=== PATIENT | female | born 1965 | race Caucasian/White ===

== ENCOUNTER → 2019-08-29 10:55 | Outpatient (CLI) | payer OTHER, MEDICAID, SELFPAY ==
[2019-08-31 14:59] LABS: Calcitonin < 2 pg/mL (< 6)
== END ==
PROVIDERS: Family Provider Internal Medicine Critical Care Medicine; PCP Family Medicine; Visit Provider Internal Medicine Endocrinology, Diabetes & Metabolism
DX: C80.1 Malignant (primary) neoplasm, unspecified (principal); Z85.850 Personal history of malignant neoplasm of thyroid; R93.89 Abnormal findings on diagnostic imaging of other specified body structures; E89.0 Postprocedural hypothyroidism; C73 Malignant neoplasm of thyroid gland; E04.1 Nontoxic single thyroid nodule
CPT/HCPCS: 36415; 82308

== ENCOUNTER → 2019-09-20 16:08 | Outpatient (CLI) | payer OTHER, MEDICAID, SELFPAY ==
--- NOTE | 2019-09-20 16:10 | DI.MRI.S_ITS ---
PROCEDURE: MR HEAD/BRAIN WO/W CON INDICATIONS: MALIGNANT NEOPLASM OF THYROID GLAND TECHNIQUE: Noncontrast axial T1 spin echo, axial T2 fast spin echo, sagittal and axial FLAIR, coronal T2 fast spin echo, axial gradient echo, axial diffusion and ADC through the brain. After the administration of contrast, axial and coronal 3D VIBE or T1 spin echo with fat saturation through the brain. COMPARISON: [facility], [place], [place] PET CT FUSION SKULL 2 THIGH, 09/04/2019, 14:31. FINDINGS: Image quality: Excellent. CSF Spaces: Basal cisterns are patent. No extra-axial fluid collections. Ventricles are normal in size and shape. Brain: No midline shift. No intracranial bleeds or masses. No abnormal intracranial enhancement. The brainstem appears normal. Diffusion-weighted images demonstrate no acute ischemic insults. There are minimal periventricular and subcortical white matter chronic microvascular ischemic changes. Normal intravascular flow voids are present. Skull and face: Calvarial marrow is normal in signal. Orbits appear normal. Sinuses: Sinuses and mastoids appear clear. IMPRESSION: 1. No acute intracranial disease process. 2. No metastatic disease. 3. No suspicious postcontrast enhancement. 4. Minimal periventricular and subcortical white matter chronic microvascular ischemic change. Dictated by: Arlene Jamil MD, PhD on 09/23/2019 at 10:01 Approved by: Arlene Jamil MD, PhD on 09/23/2019 at 10:08
== END ==
PROVIDERS: Family Provider Internal Medicine Critical Care Medicine; PCP Family Medicine; Visit Provider Internal Medicine
DX: C73 Malignant neoplasm of thyroid gland (principal); C34.12 Malignant neoplasm of upper lobe, left bronchus or lung
CPT/HCPCS: 70553; A9579

== ENCOUNTER → 2019-10-28 12:05 | Outpatient (CLI) | payer OTHER, MEDICAID, SELFPAY ==
--- NOTE | 2019-10-28 | DI.RAD.S_ITS ---
PROCEDURE: [place] GUIDED PICC PLACEMENT INDICATIONS: Malignant (primary) neoplasm, unspecified COMPARISON: [facility], MR, MR HEAD/BRAIN WO/W CON, 09/20/2019, 16:21. [place], [place], [place] PET CT FUSION SKULL 2 THIGH, 09/04/2019, 14:31. [facility], BIOPSY LOCALIZATION/ASPIRATION, 06/17/2016, 15:19. [facility], THYROID, 06/09/2016, 12:11. [place], [place], PET/CT SKULL BASE TO MID THIGH, 05/27/2016, 12:33. [facility], [place], THORAX WITH CONTRAST, 05/12/2016, 12:59. FINDINGS: PICC was placed by the intravenous therapy team from the left side. Fluoroscopic spot film demonstrates the tip of the left upper extremity approach PICC projecting to the area of superior vena cava, just above the cavoatrial junction. There is an irregular spiculated mass of the superior left mediastinum/left upper lobe, correlating with the spiculated thoracic mass/malignancy described on comparison PET CT of 09/04/19. IMPRESSION: 1. Left upper extremity approach PICC tip projects over the superior vena cava. 2. Irregular spiculated mass of the superior left mediastinum/left upper lobe, correlating with the spiculated thoracic mass/malignancy described on comparison PET/CT of 09/04/19. Dictated by: Hood Cuevas M.D. on 10/28/2019 at 13:51 Approved by: Hood uCevas M.D. on 10/28/2019 at 13:58
== END ==
PROVIDERS: Family Provider Internal Medicine Critical Care Medicine; PCP Family Medicine; Visit Provider Internal Medicine
DX: Z45.2 Encounter for adjustment and management of vascular access device (principal); C80.1 Malignant (primary) neoplasm, unspecified; R22.2 Localized swelling, mass and lump, trunk
CPT/HCPCS: 36573

== ENCOUNTER 2021-02-26 23:41 | Observation (INO) | payer OTHER, MEDICAID, SELFPAY ==
[2021-02-26 23:45] VITALS: BMI 30.5
--- NOTE | 2021-02-26 23:51 | DI.CT.S_ITS ---
PROCEDURE: CT CHEST ABD PEL W CON INDICATIONS: severe abdominal pain, recent history of lung Cancer, PE, GI bleed TECHNIQUE: After the administration of intravenous contrast, 5 mm thick sections acquired from the lung apices to the symphysis. 5 mm coronal and sagittal reformats were performed, with additional 7 mm MIP reformats through the lungs. For radiation dose reduction, the following was used: automated exposure control, adjustment of mA and/or kV according to patient size. COMPARISON: [place], [place], [place] PET CT FUSION SKULL 2 THIGH, 12/04/2019, 15:02. FINDINGS: Image quality: Excellent. CHEST: Lungs and pleura: Consolidative change can be seen involving the left upper lung, which is progressed compared to the 12/04/2019 examination. Postoperative changes are seen of the left lung. Underlying centrilobular emphysematous changes are seen. No pleural effusions or pneumothorax. Central and peripheral airways appear patent and normal in caliber. Mediastinum: Heart size is at the upper limits of normal. At least moderate coronary artery calcification is seen. No pericardial effusion. No mediastinal or hilar adenopathy by size criteria. Descending thoracic aorta is minimally aneurysmal at 4.1 cm. The pulmonary arteries demonstrate normal size. Esophagus is normal in caliber. No hiatal hernia. Chest wall: No axillary or supraclavicular adenopathy by size criteria. Thyroid gland is not well seen. ABDOMEN: Solid organs: Liver is normal in size and enhancement. Of the right liver dome, there is a 5 mm low-density lesion. Gallbladder demonstrates apparent layering sludge, with small gallstones. Biliary system is non dilated. Pancreas enhances normally. Spleen is normal in size and enhancement. There is a left adrenal nodule seen that measures 33 Hounsfield units and 2 cm. No right adrenal nodules. Kidneys demonstrate normal size and enhancement, without hydronephrosis. Left kidney cysts are seen, which measure up to 10 Hounsfield units, which are considered to be simple cysts. Peritoneum and bowel: Bowel loops demonstrate normal wall thickness and caliber. No free fluid or air. Nodes and vessels: No retroperitoneal or mesenteric adenopathy by size criteria. Aorta and inferior vena cava are normal in size. The abdominal aorta measures at the upper limits of normal at 2.9 cm. Atherosclerotic calcification is noted. Atherosclerotic calcification can be seen of the iliac arteries, with at least 50% stenosis of the common iliac arteries. Miscellaneous: Anterior abdominal wall mesh placement can be seen. PELVIS: Genitourinary: Bladder wall thickness is normal. The uterus appears normal for age. No adnexal masses are seen. Miscellaneous: No inguinal hernias or adenopathy. Bones: No suspicious bony lesions. No vertebral body compression fractures. Mild dextroconvex scoliotic curvature is seen. Focal L5-S1 degenerative change is seen. Milder degenerative changes are seen elsewhere. IMPRESSION: Postoperative change is seen involving the left upper lung. There is also consolidative change can be seen involving the left upper lung, which is felt most likely be related to posttreatment changes. Superimposed infection is possible, yet considered to be less likely. If clinically appropriate, a scheduled follow-up PET-CT could be considered for further evaluation. Minimal ascending aortic aneurysm, 4.1 cm. Atherosclerotic calcification, including in involving the coronary arteries. There is at least 50% stenosis of the common iliac arteries. Incidental note is made of: Likely right liver dome cyst Apparent layering gallbladder sludge, with small gallstones 2 cm left adrenal nodule, previously defined as benign Simple left renal cysts. Anterior abdominal wall mesh Focal L5-S1 degenerative change Note: No significant discrepancy from the preliminary report. Dictated by: Nathanael iRos M.D. on 02/27/2021 at 7:55 Approved by: Nathanael Rios M.D. on 02/27/2021 at 8:04
--- NOTE | 2021-02-26 23:51 | ED_ITS ---
HPI - Abdominal Pain General Chief Complaint: Abdominal Pain Stated Complaint: nausea,weak stomach pain sent by [email or web address] Time Seen by Provider: 02/26/21 23:45 Source: patient Mode of arrival: Ambulatory Limitations: no limitations History of Present Illness HPI narrative: 55-year-old female former smoker with history of lung cancer, pulmonary embolism, peptic ulcer disease, on Eliquis presents with a chief complaint of many months of epigastric discomfort, nausea, vomiting and poor appetite presents tonight because her symptoms have been worse over the past few days. She states that she has had dark almost black stools for the past few days. She does get weak when she ambulates. She denies any blood in her vomit. She does have a very remote history of diverticulitis but denies any bright red stool. She has had no recent antibiotics, exposure to other persons with similar symptoms. She had been in touch with her primary care provider and was told to start a PPI which she did earlier in the week but has done little to help her symptoms. She denies using Pepto-Bismol MD complaint: abdominal pain Onset (ago): week(s) Pain Consistency: constant Location: epigastric Severity: moderate Quality: cramping and aching Radiation: none Exacerbating factors: nothing Related Data Home Medications Medication Instructions Recorded Confirmed amlodipine 5 mg tablet 5 mg PO DAILY 02/15/21 02/16/21 levothyroxine 200 mcg tablet 200 mcg PO DAILY 02/15/21 02/16/21 ondansetron HCl 8 mg tablet 8 mg PO Q12H 02/15/21 02/16/21 amiodarone 200 mg tablet 200 mg PO DAILY 02/16/21 02/16/21 apixaban 5 mg tablet 5 mg PO BID 02/16/21 02/16/21 bupropion HCl 200 mg tablet,12 hr 200 mg PO DAILY 02/16/21 02/16/21 sustained-release metoprolol succinate 50 mg 50 mg PO DAILY 02/16/21 02/16/21 tablet,extended release 24 hr Previous Rx's Medication Instructions Recorded pantoprazole 20 mg tablet,delayed 20 mg PO BID #60 tab 02/16/21 release omeprazole 20 mg capsule,delayed 20 mg PO BID #60 cap 02/19/21 release Allergies Allergy/AdvReac Type Severity Reaction Status Date / Time gabapentin Allergy Unknown Unverified 02/15/21 07:00 Review of Systems Constitutional Constitutional: Denies chills, Reports fatigue, Denies fever(s), Denies frequent falls, Denies lethargy and Reports weakness Eyes Eyes: Denies change in vision, Denies eye discharge, Denies irritation and Denies loss of vision ENT Ears, Nose, Mouth, and Throat: Denies change in voice, Denies dizziness, Denies neck pain, Denies sore throat and Denies throat swelling Cardiovascular Cardiovascular: Denies chest pain, Denies irregular heart rhythm, Denies lightheadedness, Denies palpitations, Denies dyspnea, Denies dyspnea on exertion and Denies orthopnea Respiratory Respiratory: Denies cough, Denies dyspnea, Denies dyspnea on exertion and Denies wheezing Gastrointestinal Gastrointestinal: Reports abdominal pain, Reports melena, Denies change in bowel habits, Denies diarrhea, Reports nausea and Denies vomiting Musculoskeletal Musculoskeletal: Denies neck pain and Denies numbness Integumentary/Breasts Skin/Breast: Denies pruritus, Denies erythema, Denies rash and Denies wounds Neurologic Neurologic: Denies behavioral changes, Denies confusion, Denies dizziness, Denies frequent falls, Denies loss of vision, Denies numbness and Reports weakness Psychiatric Psychiatric: Denies anxiety, Denies behavioral changes, Denies confusion, Denies depression, Denies homicidal ideation and Denies suicidal ideation Endocrine Endocrine: Reports fatigue, Denies flushing and Denies palpitations Hematologic/Lymphatic Hematologic/Lymphatic: Denies easy bruising Allergic/Immunologic Allergic/Immunologic: Denies urticaria, Denies throat swelling and Denies wheezing Patient History Surgical History History of third molar tooth extraction Social History Smoking Status: Former smoker (Quit 2019) Smoking Status: Former smoker (Quit 2019) Exam Narrative Exam Narrative: GENERAL: [55] year old patient appears stated age. Well- nourished, well-developed patient, in mild distress. HEAD: Atraumatic. Normocephalic. EYES: Pupils equal round and reactive. Extraocular motions intact. No scleral icterus. No injection or drainage. ENT: Nose without bleeding, purulent drainage. Throat without erythema, tonsillar hypertrophy or exudate. Airway patent. NECK: Trachea midline. Non tender CARDIOVASCULAR: Regular rate and rhythm without murmurs, gallops, or rubs. RESPIRATORY: Clear to auscultation. Breath sounds equal bilaterally. No wheezes, rales, or rhonchi. GASTROINTESTINAL: Abdomen soft, epigastric pain, nondistended. RECTAL: Moderately HEME +. Exam performed with patient permission and female nursing slab puller at the bedside EXTREMITIES: No edema or joint tenderness. BACK: Nontender without deformity or crepitance. No flank tenderness. NEURO: AOx3. SKIN: No rash or erythema of visible areas Initial Vital Signs Initial Vital Signs: Vital Signs Temperature 98.3 F 02/26/21 23:58 Pulse Rate 72 02/26/21 23:58 Respiratory Rate 20 02/26/21 23:58 Blood Pressure 187/83 H 02/26/21 23:58 Pulse Oximetry 97 02/26/21 23:58 Course Orders Ordered: ED Orders 02/26/21 23:51 CT chest abd pel w con Stat COVID19 - ADMIT ([employer]IAN swab/PCR) Stat Complete Blood Count AUTO DIFF Stat Comprehensive Metabolic Panel Stat Prothrombin Time INR Stat Type and Screen Stat 02/27/21 00:03 EKG-12 Lead Stat 02/27/21 01:59 Consult to General Surgery Stat Discontinued Medications Sodium Chloride (Normal Saline 0.9%) 500 mls @ 1,000 mls/hr IV BOLUS ONE Stop: 02/27/21 01:08 Last Infusion: 02/27/21 01:48 Dose: 0 mls/hr Documented by: Admin: 02/27/21 00:46 Dose: 1,000 mls/hr Documented by: VAN Pantoprazole Sodium (Pantoprazole 40 Mg Vial) 40 mg IV NOW ONE Stop: 02/26/21 23:52 Last Admin: 02/27/21 00:27 Dose: 40 mg Documented by: VAN Vital Signs Vital signs: Vital Signs - 8 hr 02/26/21 23:58 Temperature 98.3 F Pulse Rate 72 Respiratory Rate 20 Blood Pressure 187/83 H Pulse Oximetry 97 MDM - Abdominal Pain Lab Data Result diagrams: 02/27/21 00:08 02/27/21 00:08 Labs: Lab Results 02/27/21 02/27/21 02/27/21 Range/Units 00:08 00:08 00:08 WBC 7.3 (4.5-11.0) X10^3/uL RBC 4.36 (4.0-5.2) X10^6/uL Hgb 13.4 (12.0-16.0) g/dL Hct 39.1 (36-46) % MCV 89.8 (80-100) fL MCH 30.7 (26-34) PG MCHC 34.2 (30-36) % RDW 15.1 H (11.6-14.8) % Plt Count 219 (150-400) X10^3/uL Neut % (Auto) 69.1 (50-75) % Lymph % (Auto) 22.5 L (25-40) % Menard % (Auto) 6.0 (3-14) % Eos % (Auto) 1.2 L (2-4) % Baso % (Auto) 1.2 (0-2) % Neut # (Auto) 5100 (9081-5562) /uL Lymph # (Auto) 1700 (0060-9413) /uL Menard # (Auto) 400 (0-900) /uL Eos # (Auto) 100 (0-450) /uL Baso # (Auto) 100 (0-100) /uL PT 16.6 H (10.1-12.7) SECONDS INR 1.5 H (0.9-1.3) Sodium 138 (137-145) mmol/L Potassium 3.4 (3.4-5.1) mmol/L Chloride 104 (98-107) mmol/L Carbon Dioxide 26 (22-32) mmol/L BUN 20 H (7-17) mg/dL Creatinine 1.42 H (0.52-1.04) mg/dL Estimated GFR 38.1 L (>60) mL/min BUN/Creatinine Ratio 14.1 (6-22) Glucose 93 (70-100) mg/dL Calcium 10.0 (8.4-10.2) mg/dL Total Bilirubin 0.5 (0.2-1.3) mg/dL AST 19 (14-36) IU/L ALT 14 (<35) IU/L Alkaline Phosphatase 90 (38-126) U/L Total Protein 7.2 (6.3-8.2) g/dL Albumin 4.4 (3.5-5.0) g/dL Globulin 2.8 (1.7-4.1) g/dL Albumin/Globulin Ratio 1.6 (1.0-2.8) Blood Type Antibody Screen 02/27/21 Range/Units 00:35 WBC (4.5-11.0) X10^3/uL RBC (4.0-5.2) X10^6/uL Hgb (12.0-16.0) g/dL Hct (36-46) % MCV (80-100) fL MCH (26-34) PG MCHC (30-36) % RDW (11.6-14.8) % Plt Count (150-400) X10^3/uL Neut % (Auto) (50-75) % Lymph % (Auto) (25-40) % Menard % (Auto) (3-14) % Eos % (Auto) (2-4) % Baso % (Auto) (0-2) % Neut # (Auto) (9927-8418) /uL Lymph # (Auto) (0549-3738) /uL Menard # (Auto) (0-900) /uL Eos # (Auto) (0-450) /uL Baso # (Auto) (0-100) /uL PT (10.1-12.7) SECONDS INR (0.9-1.3) Sodium (137-145) mmol/L Potassium (3.4-5.1) mmol/L Chloride (98-107) mmol/L Carbon Dioxide (22-32) mmol/L BUN (7-17) mg/dL Creatinine (0.52-1.04) mg/dL Estimated GFR (>60) mL/min BUN/Creatinine Ratio (6-22) Glucose (70-100) mg/dL Calcium (8.4-10.2) mg/dL Total Bilirubin (0.2-1.3) mg/dL AST (14-36) IU/L ALT (<35) IU/L Alkaline Phosphatase (38-126) U/L Total Protein (6.3-8.2) g/dL Albumin (3.5-5.0) g/dL Globulin (1.7-4.1) g/dL Albumin/Globulin Ratio (1.0-2.8) Blood Type O Positive Antibody Screen Negative Discharge Plan Departure Prescriptions: No Action omeprazole 20 mg capsule,delayed release(DR/EC) 20 mg PO BID Qty: 60 RF: 0 bupropion HCl 200 mg tablet sustained-release 12 hr 200 mg PO DAILY RF: 0 Eliquis 5 mg tablet 5 mg PO BID RF: 0 amiodarone 200 mg tablet 200 mg PO DAILY RF: 0 metoprolol succinate 50 mg tablet extended release 24 hr 50 mg PO DAILY RF: 0 pantoprazole [Protonix] 20 mg tablet,delayed release (DR/EC) 20 mg PO BID Qty: 60 RF: 0 amlodipine 5 mg tablet 5 mg PO DAILY RF: 0 levothyroxine 200 mcg tablet 200 mcg PO DAILY RF: 0 ondansetron HCl 8 mg tablet 8 mg PO Q12H RF: 0
[2021-02-26 23:58] VITALS: BP 187/83; PULSE 72; RESP 20; TEMP 36.8; O2SAT 97
[2021-02-27 00:26] LABS: Add Manual Diff / Slide Review NO; Basophils Absolute Auto 100 /uL (0-100); Basophils Percent Auto 1.2 % (0-2); Eosinophils Absolute Auto 100 /uL (0-450); Eosinophils Percent Auto 1.2 % (2-4); Hematocrit 39.1 % (36-46); Hemoglobin 13.4 g/dL (12.0-16.0); Lymphocytes Absolute Auto 1700 /uL (1100-4500); Lymphocytes Percent Auto 22.5 % (25-40); Mean Corpuscular HGB Conc 34.2 % (30-36); Mean Corpuscular Hemoglobin 30.7 PG (26-34); Mean Corpuscular Volume 89.8 fL (80-100); Monocytes Absolute Auto 400 /uL (0-900); Neutrophils Absolute Auto 5100 /uL (1500-7000); Neutrophils Percent Auto 69.1 % (50-75); Platelet Count 219 X10^3/uL (150-400); Red Blood Cell Count 4.36 X10^6/uL (4.0-5.2); Red Cell Distribution Width 15.1 % (11.6-14.8); White Blood Cell Count 7.3 X10^3/uL (4.5-11.0)
[2021-02-27] MEDS: PANTOPRAZOLE 40 MG VIAL IV ×2 (00:27→09:30)
[2021-02-27 00:30] LABS: Alanine Aminotransferase 14 IU/L (<35); Albumin 4.4 g/dL (3.5-5.0); Albumin Globulin Ratio 1.6 (1.0-2.8); Alkaline Phosphatase 90 U/L (38-126); Aspartate Aminotransferase 19 IU/L (14-36); BUN Creatinine Ratio 14.1 (6-22); Bilirubin Total 0.5 mg/dL (0.2-1.3); Blood Urea Nitrogen 20 mg/dL (7-17); Carbon Dioxide 26 mmol/L (22-32); Chloride 104 mmol/L (98-107); Estimated Glomerular Filt Rate 38.1 mL/min (>60); Globulin 2.8 g/dL (1.7-4.1); Glucose 93 mg/dL (70-100); HEMOLYSIS < 15 (0-50); Potassium 3.4 mmol/L (3.4-5.1); Sodium 138 mmol/L (137-145); Total Protein 7.2 g/dL (6.3-8.2)
[2021-02-27 00:33] LABS: INR 1.5 (0.9-1.3); Prothrombin Time 16.6 SECONDS (10.1-12.7)
[2021-02-27] MEDS: SODIUM CHLORIDE 0.9% 500 ML 1000 ML IV (00:46)
--- NOTE | 2021-02-27 02:33 | PM.HP.1 ---
History of Present Illness History of Present Illness Date Patient Seen: 02/27/21 Time Patient Seen: 02:34 Chief complaint: nausea,weak stomach pain sent by icanbuysharyn Narrative: Patient is a 55-year-old female with a history of small-cell lung cancer and non-small cell lung cancer with 2 different chemotherapy treatments and thyroid cancer which was removed & treated. Last Cancer Treatment radiation chemotherapy completed in 2019. History of pulmonary embolism, peptic ulcer disease, on Eliquis presents with a chief complaint of many months of epigastric discomfort, nausea, vomiting and poor appetite presents tonight because her symptoms have been worse over the past few days. She states that she has had dark almost black stools for the past few days. She does get weak when she ambulates. She denies any blood in her vomit or urine. She does have a very remote history of diverticulitis but denies any bright red stool. She has had no recent antibiotics, exposure to other persons with similar symptoms. She had been in touch with her primary care provider and was told to start a PPI which she did earlier in the week but has done little to help her symptoms. She denies any other over the counter medications. Upon admit patient reports that she continues to feel very tired but that the nausea and pain has decreased from earlier in the ED, her abdominal pain is a constant, ache she is unsure what improves or worsens the pain she has from time to time had vomiting following eating, she last vomited yesterday afternoon, denies hematemesis her last BM was 2-3 days ago and she notes that she has been battling with constipation for the past 2 years, she reports dark coffee color almost black stools infrequently over the past month, she has not noted any blood in her urine but states she is incontinent of urine and wears a pad and has noticed blood on her pad infrequently. Patient denies chest pain, shortness of breath, any skin wounds or abnormal bruising bleeding, bleeding from her gums, any recent injury or trauma, or illness. Patient's blood pressure once in the room 120/83 with HR 72, RR 20 and O2 saturation 97% on room air. Patient's vitals upon admit temp 98.3?, BP 187/83, HR 72, R 20, 97% on room air. Patient's labs: Blood count within normal limits RBC 4.36, HGB 13.4, HCT 39.1, RDW 15.1, BUN 20, BUTTON FACING MACHINE OPERATOR 1.42, EGFR 38.1, PT 16.6, INR 1.5, positive Hemoccult. CT Chest: Left lower lobe lobectomy pleural-parenchymal changes bronchiolectasis and volume loss felt to be postoperative changes no priors available for comparison. mild centrilobular emphysema right upper lobe. Remaining portion of lungs are clear. Mild cardiomegaly. Moderate coronary artery calcifications. Mild aneurysm dilation of the ascending aorta of 4.[address] ABD/pelvis: Hepatic steatosis. 5 mm probable cyst dome of the liver. Physiologic distension of the gallbladder with layering sludge and gallstones. Thickening right adrenal gland probable hyperplasia. Intermediate left adrenal nodule. Infrarenal abdominal aortic aneurysm with calcified atherosclerotic disease measuring 2.9 cm. Significant stenosis of the common iliac arteries bilaterally. Suspect hyperdense cyst left kidney. ED surgery consult:Dr. Jennings Patient to be admitted for GI bleed, upper epigastric pain surgery consult tomorrow. Patient History Medical History (Updated 02/27/21 @ 02:44 by JOSIAH Brown-ERIKA) History of pulmonary embolus (PE) Hypertension, essential Hypothyroidism Surgical History (Updated 02/27/21 @ 04:38 by JOSIAH Brown-ERIKA) History of lung surgery History of third molar tooth extraction History of thyroidectomy Family & Social History Family History (Updated 02/27/21 @ 04:38 by JOSIAH Brown-ERIKA) Father Heart disease Heart attack Brother Heart attack History of coronary artery stent placement Heart disease Brother Heart disease Heart attack Safety & Behavioral: Feels Safe in Current Yes Environment Tobacco & Substance use: Smoking Status Former smoker quit 2019 Substance Use Type marijuana Meds Home Medications and Allergies Home Medications Medication Instructions Recorded Confirmed Type amlodipine 5 mg tablet 5 mg PO DAILY 02/15/21 02/16/21 History levothyroxine 200 mcg tablet 200 mcg PO DAILY 02/15/21 02/16/21 History ondansetron HCl 8 mg tablet 8 mg PO Q12H 02/15/21 02/16/21 History amiodarone 200 mg tablet 200 mg PO DAILY 02/16/21 02/16/21 History apixaban 5 mg tablet 5 mg PO BID 02/16/21 02/16/21 History bupropion HCl 200 mg tablet,12 hr 200 mg PO DAILY 02/16/21 02/16/21 History sustained-release metoprolol succinate 50 mg 50 mg PO DAILY 02/16/21 02/16/21 History tablet,extended release 24 hr pantoprazole 20 mg tablet,delayed 20 mg PO BID #60 tab 02/16/21 02/16/21 Rx release omeprazole 20 mg capsule,delayed 20 mg PO BID #60 cap 02/19/21 Rx release Allergies Allergy/AdvReac Type Severity Reaction Status Date / Time gabapentin Allergy Unknown Unverified 02/15/21 07:00 Review of Systems Review of Systems ROS: Yes All systems reviewed with the patient and are negative except as otherwise documented Gastrointestinal Gastrointestinal: Reports abdominal pain and Reports nausea Exam Vital Signs (past 8 hours): - 02/26/21 23:58 Temperature 98.3 F Pulse Rate 72 Respiratory Rate 20 Blood Pressure 187/83 H Pulse Oximetry 97 Oxygen Delivery Method Room Air Narrative Exam Narrative: General: Patient is a well-developed, well-nourished in no distress at this time. HEENT: Normocephalic, atraumatic, extraocular muscles intact, oral pharynx is clear and mucous membranes are moist. Neck is supple and symmetric, trachea is midline, no adenopathy, no thyroid enlargement, nontender, no masses palpated. Negative for JVD Chest: Normal, no nasal flaring, retractions, or tachypneic labored Lungs: Auscultation of all lung murray are clear without adventitious sounds, wheezes, rhonchi, or rales. Cardio: S1 & S2 with regular rate and rhythm without murmur, rubs, or gallops, no carotid bruit, no cardiac pulsations present. Abdomen: Soft gross diffuse tenderness with greatest intensity in the epigastric area with slight distension, patient has scar from umbilical hernia repair and umbilical hernia is palpable, negative for organomegaly, or masses. Bowel sounds hypoactive are present in all 4 quadrants without guarding or rebound, no CVA tenderness. Musculoskeletal: Muscle strength and tone are equal within normal limits, no deformity, crepitus, effusions, cyanosis, clubbing or edema present. Full range of motion intact radial and pedal pulses are normal. Skin: Warm dry and intact without rashes, ulcerations or petechiae. Neuro: Alert and orientated x3, strength is +5/5 in all extremities, sensation to touch intact, no gross deficits noted of cranial nerves. Psych: Patient has a well-kept appearance, appropriate affect, mental status attitude thought context and judgment are appropriate for age. Objective Labs Result Diagrams: 02/27/21 00:08 02/27/21 00:08 Labs: Laboratory Results - last 24 hr 02/27/21 02/27/21 02/27/21 00:08 00:08 00:08 WBC 7.3 RBC 4.36 Hgb 13.4 Hct 39.1 MCV 89.8 MCH 30.7 MCHC 34.2 RDW 15.1 H Plt Count 219 Neut % (Auto) 69.1 Lymph % (Auto) 22.5 L [place] % (Auto) 6.0 Eos % (Auto) 1.2 L Baso % (Auto) 1.2 Neut # (Auto) 5100 Lymph # (Auto) 1700 [place] # (Auto) 400 Eos # (Auto) 100 Baso # (Auto) 100 PT 16.6 H INR 1.5 H Sodium 138 Potassium 3.4 Chloride 104 Carbon Dioxide 26 BUN 20 H Creatinine 1.42 H Estimated GFR 38.1 L BUN/Creatinine Ratio 14.1 Glucose 93 Calcium 10.0 Total Bilirubin 0.5 AST 19 ALT 14 Alkaline Phosphatase 90 Total Protein 7.2 Albumin 4.4 Globulin 2.8 Albumin/Globulin Ratio 1.6 Blood Type Antibody Screen 02/27/21 00:35 WBC RBC Hgb Hct MCV MCH MCHC RDW Plt Count Neut % (Auto) Lymph % (Auto) [place] % (Auto) Eos % (Auto) Baso % (Auto) Neut # (Auto) Lymph # (Auto) [place] # (Auto) Eos # (Auto) Baso # (Auto) PT INR Sodium Potassium Chloride Carbon Dioxide BUN Creatinine Estimated GFR BUN/Creatinine Ratio Glucose Calcium Total Bilirubin AST ALT Alkaline Phosphatase Total Protein Albumin Globulin Albumin/Globulin Ratio Blood Type O Positive Antibody Screen Negative Assessment & Plan Assessment & Plan narrative: This patient requires acute care inpatient hospital management for acute GI bleed with upper abdominal epigastric pain, after failing outpatient management from her PCP. The patient is at much higher risk for medical and surgical complications because of her history of small-cell lung cancer and non-small cell lung cancer with 2 different chemotherapy treatments and thyroid cancer. Last Cancer Treatment radiation chemotherapy completed in 2019. History of pulmonary embolism, peptic ulcer disease, on chronic anticoagulant therapy. These factors increase the difficulty and complexity of medical and surgical interventions and increases the chances of poor outcomes such as morbidity and mortality. The patient's tobacco abuse and cancer history are likely to impact her oxygenation, which can contribute poor health outcomes. 1. Acute GI bleed with upper abdominal epigastric pain, acute, present on admission, patient stable,not actively bleeding Suspect lower GI bleed -diagnostic criteria:-reported history of melena, melenic stool on examination. Positive Hemoccult in ED -Rule out upper GI &/or Lower GI Bleeding, duodenitis, esophageal varices, portal hypertensive gastropathy, angiodysplasia, gastric reflux, gastritis, peptic ulcer disease, aerophagia, Dorinda-Johnson tear, and or gastric cancer. -closely monitor airway, clinical status, vital signs, cardiac rhythm, urinary output. - melena (black, tarry stool) originates proximal to the ligament of Treitz (90 percent), though it may also originate from the oropharynx or nasopharynx, small bowel, or colon. Patient's vitals upon admit temp 98.3?, BP 187/83, HR 72, R 20, 97% on room air. Patient's labs: Blood count within normal limits RBC 4.36, HGB 13.4, HCT 39.1, RDW 15.1, BUN 20, BUTTON FACING MACHINE OPERATOR 1.42, EGFR 38.1, PT 16.6, INR 1.5, positive Hemoccult. CT Chest: Left lower lobe lobectomy pleural-parenchymal changes bronchiolectasis and volume loss felt to be postoperative changes no priors available for comparison. mild centrilobular emphysema right upper lobe. Remaining portion of lungs are clear. Mild cardiomegaly. Moderate coronary artery calcifications. Mild aneurysm dilation of the ascending aorta of 4.[address] ABD/pelvis: Hepatic steatosis. 5 mm probable cyst dome of the liver. Physiologic distension of the gallbladder with layering sludge and gallstones. Thickening right adrenal gland probable hyperplasia. Intermediate left adrenal nodule. Infrarenal abdominal aortic aneurysm with calcified atherosclerotic disease measuring 2.9 cm. Significant stenosis of the common iliac arteries bilaterally. Suspect hyperdense cyst left kidney. ED surgery consult:Dr. Jennings Patient to be admitted for GI bleed, upper epigastric pain surgery consult tomorrow. -hold patient's Eliquis Upon admit: PTT 16.6/INR 1.5 -vital signs if unstable q.1 hours x2, then q.4 hours if stable, call for heart rate> 100, systolic BP< 100, activity-as tolerated with fall precautions, strict I&O Q shift, No VTE/DVT prophylaxis due to bleeding risk. -NPO -comorbidities that complicate or exacerbate anemia condition include coronary artery disease, older patient age, and COPD. -patient was typed and cross in ER -LR at 100 cc/hour -Reglan 10 mg -Protonix 40 mg IV Qdaily-when no active bleeding is present -labs ordered CBC, peripheral smear, reticulocyte count, PT, PTT, iron profile, CMP, lactate -consults ordered: Surgery Dr. Jennings -prevention vaccines: Seasonal flu recommended 2.Essential hypertension, acute on chronic present on admission, uncontrolled -187/83 at admit -continue patient's amiodarone, amlodipine, metoprolol 3. Hypothyroidism, chronic, secondary to cancer of the thyroid/thyroidectomy, not present on admission, control unknown -continue patient's levothyroxine, TSH ordered 4. History of small cell carcinoma of the lung, episodes x2, last treated 2019, resulting in history of PE, and subsequent long-term chronic anticoagulation therapy, not present on admission -holding patient'sharyn Ojeda at this time. Code status: Full code Surrogate decision maker: Brother John VILLARREAL PCR: Negative VTE/DVT prophylaxis: Contraindicated, SCDs only Scores GCS [place] coma scale eye opening: Spontaneous Maxime coma scale verbal response: Orientated Maxime coma scale motor response: Obey commands Maxime coma scale total score: 15 SOFA PaO2/FIO2: >=400 mmHg Platelets: >= 150 Bilirubin: < 1.2 mg/dL Hypotension: MAP >= 70 mmHg Maxime Coma Scale: 15 Renal: Creatinine 1.2-1.9 mg/dL SOFA Score: 1 Wells' Criteria for PE Clinical signs and symptoms of DVT: No PE is #1 Dx or equally likely: No Heart rate > 100: No Immobilization at least 3 days or surg in previous 4 weeks: No History of PE or DVT: Yes Hemoptysis: No Malignancy w/Treatment within 6 months or palliative: No Wells' PE Score total: 1.5
[2021-02-27 03:24] LABS: Reticulocyte Count, Percent 1.4 % (1.06-2.63)
[2021-02-27 03:31] LABS: COVID19 - ADMIT (NP swab/PCR) Negative (Negative)
[2021-02-27 03:45] VITALS: BP 120/83; PULSE 70; RESP 18; TEMP 36.3; O2SAT 99
[2021-02-27] MEDS: LACTATED RINGERS 1,000 ML 100 ML IV (04:08)
[2021-02-27] MEDS: METOCLOPRAMIDE 10 MG in SODIUM CHLORIDE 0.9% 50 ML 208 ML IV (05:35)
--- NOTE | 2021-02-27 06:11 | PC.NURSE ---
Patient states she has no allergy to gabapentin. Admit belongings include 2 silver metal colored rings, and 1 silver colored metal bracelet. shoes, socks,underwear, bra, sweatshirt,hat,pants,shoes,home meds of 3 pills she did not take last night, labeled and given to coordinator. Patient also has wallet,keys,purse,cell phone and door machine operator. I labelled the door machine operator with patient's permission..
[2021-02-27 06:44] LABS: Add Manual Diff / Slide Review NO; Basophils Absolute Auto 0 /uL (0-100); Basophils Percent Auto 0.7 % (0-2); Eosinophils Absolute Auto 100 /uL (0-450); Eosinophils Percent Auto 1.2 % (2-4); Hematocrit 38.6 % (36-46); Hemoglobin 12.7 g/dL (12.0-16.0); Lymphocytes Absolute Auto 1300 /uL (1100-4500); Lymphocytes Percent Auto 19.1 % (25-40); Mean Corpuscular Volume 91.1 fL (80-100); Monocytes Absolute Auto 400 /uL (0-900); Monocytes Percent Auto 6.5 % (3-14); Neutrophils Absolute Auto 5000 /uL (1500-7000); Neutrophils Percent Auto 72.5 % (50-75); Platelet Count 209 X10^3/uL (150-400); Red Blood Cell Count 4.24 X10^6/uL (4.0-5.2); Red Cell Distribution Width 15.4 % (11.6-14.8); White Blood Cell Count 6.9 X10^3/uL (4.5-11.0)
[2021-02-27 06:47] LABS: INR 1.3 (0.9-1.3); Prothrombin Time 14.3 SECONDS (10.1-12.7)
[2021-02-27 06:50] LABS: PTT Partial Thromboplastin Tim 38 SECONDS (26.4-36.2)
[2021-02-27 06:53] LABS: HEMOLYSIS < 15 (0-50); Iron 56 ug/dL (37-170); Lactate (Lactic Acid) 0.9 mmol/L (0.7-2.1)
[2021-02-27 06:55] LABS: Alanine Aminotransferase 12 IU/L (<35); Albumin 3.8 g/dL (3.5-5.0); Albumin Globulin Ratio 1.5 (1.0-2.8); Alkaline Phosphatase 79 U/L (38-126); Aspartate Aminotransferase 18 IU/L (14-36); BUN Creatinine Ratio 13.7 (6-22); Bilirubin Total 0.4 mg/dL (0.2-1.3); Blood Urea Nitrogen 17 mg/dL (7-17); Calcium 9.5 mg/dL (8.4-10.2); Carbon Dioxide 27 mmol/L (22-32); Chloride 107 mmol/L (98-107); Estimated Glomerular Filt Rate 44.6 mL/min (>60); Globulin 2.6 g/dL (1.7-4.1); Glucose 89 mg/dL (70-100); HEMOLYSIS < 15 (0-50); Magnesium 2.3 mg/dL (1.6-2.3); Potassium 3.3 mmol/L (3.4-5.1); Sodium 141 mmol/L (137-145); Total Protein 6.4 g/dL (6.3-8.2)
[2021-02-27 07:04] LABS: Percent Iron Saturation 22 % (15-50); Total Iron Binding Capacity 253 ug/dL (265-497); Transferrin 212 mg/dL (206-381)
[2021-02-27 07:25] LABS: TSH w/ Reflex to FT4 0.02 uIU/mL (0.47-4.68)
[2021-02-27 07:52] LABS: Free T4, Direct Thyroxine 3.06 ng/dL (0.78-2.19)
[2021-02-27 08:00] VITALS: BP 125/64; PULSE 70; RESP 18; TEMP 36.3; O2SAT 100
[2021-02-27 09:50] VITALS: BP 110/73; BP 126/86; BP 129/69; PULSE 65; PULSE 66; PULSE 77
--- NOTE | 2021-02-27 12:33 | PC.NURSE ---
Pt A&O x3 denies pain, denies nausea this a.m. No emesis. VSS, afebrile. Orthostatic SBP with standing to 110's, Pt asymptomatic.Pt ambulating with steady gait. MD at bedside this a.m. clearing patient for discharge. Pt verbalizes understanding of all medications, instructions, and follow- up appointments. Patient escorted to private vehicle with all of her medication, prescriptions and belongings to drive herself to the ferr back [facility].
--- NOTE | 2021-02-27 12:58 | CM.DANOTE ---
Patient is a 55 yo female who was admitted on 02/27/21 today for Nausea, weakness. Pt has [facility] and [facility] for insurance and her PCP is Veto Lin. EMR was reviewed. Per , pt with hx of small cell lung CA last year with last chemo dose in 2019 last year and hx of PE's and ulcers and admitted with G.I. bleed. Surgeon Consult ordered but then cancelled base on labs and presentation after admission, no further need for Surgeon consult at this time. Per MD, pt's labs have stabilized and pt's thyroid levels needed to be adjusted and pt stable for d/c home today with outpt follow up. SW met bedside with pt and explained role and she confirms she lives on [place] in a [facility] trailer/ as she says housing is so [place] on [place]. Pt is independent at baseline and her cancer is in remission but she is aware that she is high risk for her cancer to return. Pt denies any hx of SNF and currently has not completed DPOA pwk or Living Will but has been realizing that she needs to complete this. SW provided her with the DPOA brochure and pwk to review and pt very appreciative. Pt denies DME for ambulation and still drives, as her vehicle is in the parking lot and pt plans to transport herself home today. Pt states she has two adult Dtrs who live in [facility] and she goes to visit them regularly in [place]. Pt states she also has a couple other adult children but they live out of state. Pt states her biggest support is her Mother alex Glover who lives on [place] and can assist if needed (pt no longer , unsure if pt is or ). Pt's brother is also involved and supportive but he lives in [place]. Pt does not anticipate any d/c planning needs and preference is home today via her own car. Plan: Patient to d/c back home to [place] today via her own POV and outpt follow up. No SW needs at this time. EMMA Lan Discharge Planning/Care Management CM Discharge Assessment Start: 02/27/21 12:48 Freq: Status: Active Protocol: Document 02/27/21 12:48 BF (Rec: 02/27/21 12:57 BF [id number]) Discharge Planning Assessment Assigned Pharmacist Hospital EMMA Kamara DPOA/Assigned Designee Name none, gave DPOA pwk Advance Directives? No Advance Directives on File No History Provided By Patient,Medical Record Has Patient been admitted in last 30 No days? Prior Living Arrangements RV Household Members none Type of transporation used prior to Drives own vehicle admit Comment Has own vehicle in the parking lot Independent with ADL's Yes Is patient alert and oriented? Yes Caregiver for Another No Barriers to Discharge No Discharge Plan Home Transportation Arrangement has own vehicle in the parking lot Review Status In Process Please Provide Date Initial DC 02/27/21 Assessment Was Performed Next Review Type Continued Stay Review
--- NOTE | 2021-02-27 15:59 | PM.DS.1 ---
History of Present Illness History of Present Illness Date Patient Seen: 02/27/21 Time Patient Seen: 08:00 Chief complaint: nausea,weak stomach pain sent by [employer] Narrative: Ryan Beltran and P from Mary Chew: Patient is a 55-year-old female with a history of small-cell lung cancer and non-small cell lung cancer with 2 different chemotherapy treatments and thyroid cancer which was removed & treated. Last Cancer Treatment radiation chemotherapy completed in 2019. History of pulmonary embolism, peptic ulcer disease, on Eliquis presents with a chief complaint of many months of epigastric discomfort, nausea, vomiting and poor appetite presents tonight because her symptoms have been worse over the past few days. She states that she has had dark almost black stools for the past few days. She does get weak when she ambulates. She denies any blood in her vomit or urine. She does have a very remote history of diverticulitis but denies any bright red stool. She has had no recent antibiotics, exposure to other persons with similar symptoms. She had been in touch with her primary care provider and was told to start a PPI which she did earlier in the week but has done little to help her symptoms. She denies any other over the counter medications. Upon admit patient reports that she continues to feel very tired but that the nausea and pain has decreased from earlier in the ED, her abdominal pain is a constant, ache she is unsure what improves or worsens the pain she has from time to time had vomiting following eating, she last vomited yesterday afternoon, denies hematemesis her last BM was 2-3 days ago and she notes that she has been battling with constipation for the past 2 years, she reports dark coffee color almost black stools infrequently over the past month, she has not noted any blood in her urine but states she is incontinent of urine and wears a pad and has noticed blood on her pad infrequently. Patient denies chest pain, shortness of breath, any skin wounds or abnormal bruising bleeding, bleeding from her gums, any recent injury or trauma, or illness. Patient's blood pressure once in the room 120/83 with HR 72, RR 20 and O2 saturation 97% on room air. Patient's vitals upon admit temp 98.3?, BP 187/83, HR 72, R 20, 97% on room air. Patient's labs: Blood count within normal limits RBC 4.36, HGB 13.4, HCT 39.1, RDW 15.1, BUN 20, EX ASSISTANT/PROGRAM DIRECTOR 1.42, EGFR 38.1, PT 16.6, INR 1.5, positive Hemoccult. CT Chest: Left lower lobe lobectomy pleural-parenchymal changes bronchiolectasis and volume loss felt to be postoperative changes no priors available for comparison. mild centrilobular emphysema right upper lobe. Remaining portion of lungs are clear. Mild cardiomegaly. Moderate coronary artery calcifications. Mild aneurysm dilation of the ascending aorta of 4.[address] ABD/pelvis: Hepatic steatosis. 5 mm probable cyst dome of the liver. Physiologic distension of the gallbladder with layering sludge and gallstones. Thickening right adrenal gland probable hyperplasia. Intermediate left adrenal nodule. Infrarenal abdominal aortic aneurysm with calcified atherosclerotic disease measuring 2.9 cm. Significant stenosis of the common iliac arteries bilaterally. Suspect hyperdense cyst left kidney. ED surgery consult:Dr. Jennings Patient to be admitted for GI bleed, upper epigastric pain surgery consult tomorrow. Discharge Providers Provider Date of admission: 02/27/21 02:31 Discharge Date: 02/27/21 Primary care physician: Veto Lin MD Consults: 02/27/21 01:59 Consult to General Surgery Stat Comment: Consulting Provider: Vinny Jennings Reason for consultation: UPper GI Bleed on eliquis Has provider been notified: Yes Discharge provider: Rodrigo Meraz MD Summary Hospital Course Discharge Diagnosis: 1. Chronic nausea, abdominal discomfort 2. Hypothroidism, over medicated now with synthroid 3. Guaiac positive stools 4. HTN 5. History of small cell lung cancer 6. Pulmonary embolism 7. Peptic ulcer disease Hospital Course: Ms. Santana came in to the hospital with chronic epigastric discomfort, nausea, and some vomiting. Over the last year she has unfortunately not seen her PCP. Here her TSH was found to be 0.02, with elevated T3, consistent with a too high dose of synthroid. Initially there was concern for possible GI bleed. However, I did discuss this with the patient and she is quite clear she never saw blood, never had black stools, but her stools were always brown. She did have guaiac positive stools which is not surprising as she is on eliquis. Her hemoglobin was completely normal here. She did not need a endoscopy or colonoscopy. It was suspected that her chronic issues of nausea may be related to her synthroid dose. She was recommended to hold synthroid for a few days and the was prescribed a lower dose of synthroid at 125mcg per day. She is to continue her PPI. She will need follow up with her PCP to determine if change in synthroid dose is appropriate. The rest of her medical issues were stable in the hospital. Code: Full code Status at Discharge Cognitive/behavioral status at discharge: oriented Functional status at discharge: independent ambulation Overall status at discharge: patient is progressing back to baseline Time Spent with Patient Time spent: Less than 30 minutes Exam Vital Signs (past 8 hours): - 02/27/21 08:00 02/27/21 09:50 Temperature 97.4 F L Pulse Rate 70 Pulse Rate [Orthostatic Lying] 66 Pulse Rate [Orthostatic Sitting] 65 Pulse Rate [Orthostatic Standing] 77 Respiratory Rate 18 Blood Pressure 125/64 Blood Pressure [Orthostatic Lying] 129/69 Blood Pressure [Orthostatic Sitting] 126/86 Blood Pressure [Orthostatic Standing] 110/73 Pulse Oximetry 100 Oxygen Delivery Method Room Air Narrative Exam Narrative: General: no distress at this time. HEENT: mucous membranes are moist, negative for JVD Lungs: clear bilaterally with no wheezes, rhonchi, or rales. Cardio: regular rate and rhythm without murmur, rubs, or gallops Abdomen: Soft, no abdominal tenderness, negative for organomegaly. Bowel sounds are normal Musculoskeletal: Muscle strength is equal within normal limits. Skin: flushed face Neuro: Alert and orientated x3, moving all extremities Psych: cooperative, pleasant mood, slightly pressured speech. Objective Labs Result Diagrams: 02/27/21 06:00 02/27/21 06:00 Labs: Laboratory Results - last 24 hr 02/27/21 02/27/21 02/27/21 00:08 00:08 00:08 WBC 7.3 RBC 4.36 Hgb 13.4 Hct 39.1 MCV 89.8 MCH 30.7 MCHC 34.2 RDW 15.1 H Plt Count 219 Neut % (Auto) 69.1 Lymph % (Auto) 22.5 L [place] % (Auto) 6.0 Eos % (Auto) 1.2 L Baso % (Auto) 1.2 Neut # (Auto) 5100 Lymph # (Auto) 1700 [place] # (Auto) 400 Eos # (Auto) 100 Baso # (Auto) 100 Percent Retic PT 16.6 H INR 1.5 H APTT Sodium 138 Potassium 3.4 Chloride 104 Carbon Dioxide 26 BUN 20 H Creatinine 1.42 H Estimated GFR 38.1 L BUN/Creatinine Ratio 14.1 Glucose 93 Lactate Calcium 10.0 Magnesium Iron TIBC % Saturation Transferrin Total Bilirubin 0.5 AST 19 ALT 14 Alkaline Phosphatase 90 Total Protein 7.2 Albumin 4.4 Globulin 2.8 Albumin/Globulin Ratio 1.6 TSH Free T4 SARS-CoV-2 (PCR) Blood Type Antibody Screen 02/27/21 02/27/21 02/27/21 00:08 00:35 01:55 WBC RBC Hgb Hct MCV MCH MCHC RDW Plt Count Neut % (Auto) Lymph % (Auto) [place] % (Auto) Eos % (Auto) Baso % (Auto) Neut # (Auto) Lymph # (Auto) [place] # (Auto) Eos # (Auto) Baso # (Auto) Percent Retic 1.4 PT INR APTT Sodium Potassium Chloride Carbon Dioxide BUN Creatinine Estimated GFR BUN/Creatinine Ratio Glucose Lactate Calcium Magnesium Iron TIBC % Saturation Transferrin Total Bilirubin AST ALT Alkaline Phosphatase Total Protein Albumin Globulin Albumin/Globulin Ratio TSH Free T4 SARS-CoV-2 (PCR) Negative Blood Type O Positive Antibody Screen Negative 02/27/21 02/27/21 02/27/21 06:00 06:00 06:00 WBC 6.9 RBC 4.24 Hgb 12.7 Hct 38.6 MCV 91.1 MCH 30.0 MCHC 33.0 RDW 15.4 H Plt Count 209 Neut % (Auto) 72.5 Lymph % (Auto) 19.1 L [place] % (Auto) 6.5 Eos % (Auto) 1.2 L Baso % (Auto) 0.7 Neut # (Auto) 5000 Lymph # (Auto) 1300 [place] # (Auto) 400 Eos # (Auto) 100 Baso # (Auto) 0 Percent Retic PT 14.3 H INR 1.3 APTT 38 H Sodium 141 Potassium 3.3 L Chloride 107 Carbon Dioxide 27 BUN 17 Creatinine 1.24 H Estimated GFR 44.6 L BUN/Creatinine Ratio 13.7 Glucose 89 Lactate Calcium 9.5 Magnesium 2.3 Iron TIBC % Saturation Transferrin Total Bilirubin 0.4 AST 18 ALT 12 Alkaline Phosphatase 79 Total Protein 6.4 Albumin 3.8 Globulin 2.6 Albumin/Globulin Ratio 1.5 TSH Free T4 SARS-CoV-2 (PCR) Blood Type Antibody Screen 02/27/21 02/27/21 02/27/21 06:00 06:00 06:00 WBC RBC Hgb Hct MCV MCH MCHC RDW Plt Count Neut % (Auto) Lymph % (Auto) [place] % (Auto) Eos % (Auto) Baso % (Auto) Neut # (Auto) Lymph # (Auto) Lab[place] # (Auto) Eos # (Auto) Baso # (Auto) Percent Retic PT INR APTT Sodium Potassium Chloride Carbon Dioxide BUN Creatinine Estimated GFR BUN/Creatinine Ratio Glucose Lactate 0.9 Calcium Magnesium Iron 56 TIBC 253 L % Saturation 22 Transferrin 212 Total Bilirubin AST ALT Alkaline Phosphatase Total Protein Albumin Globulin Albumin/Globulin Ratio TSH 0.02 L Free T4 3.06 H SARS-CoV-2 (PCR) Blood Type Antibody Screen [facility] Medical History (Updated 02/27/21 @ 02:44 by FRANC rBown) History of pulmonary embolus (PE) Hypertension, essential Hypothyroidism Surgical History (Updated 02/27/21 @ 04:38 by FRANC Brown) History of lung surgery History of third molar tooth extraction History of thyroidectomy Family History (Updated 02/27/21 @ 04:38 by FRANC Brown) Father Heart disease Heart attack Brother Heart attack History of coronary artery stent placement Heart disease Brother Heart disease Heart attack Social History household members: none Smoking Status: Former smoker alcohol intake: never Discharge Plan Discharge Plan Patient Disposition: Home Provider Discharge Comment: Ms. Santana came to the hospital with nausea and abdominal discomfort. She had no evidence of any bleeding. She has been having symptoms on and off for awhile. She was noted to have thyroid levels that were high, likely because her synthroid has become too strong of a dose. She was recommended to stop synthroid for a 5 days. She can restart on February,. At that time she should start on a new dose of 125mcg daily instead of 200mcg. She was given zofran for nausea. She should follow closely with a primary care doctor to make sure her symptoms get better and her thyroid levels improve. She was noted to have a slight widening in her throacic aorta to 4.1cm that should be monitored for changes. Discharge orders & Medications Prescriptions: New ondansetron HCl [Zofran] 4 mg tablet 4 mg PO Q8H PRN (Reason: nausea and vomiting) Qty: 20 RF: 0 levothyroxine [Synthroid] 125 mcg tablet 125 mcg PO DAILY Qty: 30 RF: 0 Continued omeprazole 20 mg capsule,delayed release(DR/EC) 20 mg PO BID Qty: 60 RF: 0 bupropion HCl 200 mg tablet sustained-release 12 hr 200 mg PO BID RF: 0 Eliquis 5 mg tablet 5 mg PO BID RF: 0 amiodarone 200 mg tablet 200 mg PO DAILY RF: 0 metoprolol succinate 50 mg tablet extended release 24 hr 50 mg PO DAILY RF: 0 amlodipine 5 mg tablet 5 mg PO DAILY RF: 0 Discontinued pantoprazole [Protonix] 20 mg tablet,delayed release (DR/EC) 20 mg PO BID Qty: 60 RF: 0 levothyroxine 200 mcg tablet 200 mcg PO DAILY RF: 0 ondansetron HCl 8 mg tablet 8 mg PO Q12H RF: 0 Follow up/Referrals: Veto Lin MD [Primary Care Provider] - Diet/Activity/Treatments Diet: Diet as Tolerated Visit Report/Discharge Packet Instructions: DI for Hyperthyroidism Discharge Data Primary Care Provider: Veto Lin Attending Provider: Mary Chew VTE Deep Vein Thrombosis/Pulmonary Embolism Present on Admission: Yes
== END 2021-02-27 11:40 | disposition home or self-care (01) ==
LOC: ED 02-27 00:38 → AC 02-27 02:31
PROVIDERS: Admitting Provider Nurse Practitioner Family; Emergency Provider Emergency Medicine; Family Provider Internal Medicine Critical Care Medicine; PCP Family Medicine; Referring Provider Emergency Medicine; Visit Provider Nurse Practitioner Family
DX: R10.13 Epigastric pain (principal); R11.2 Nausea with vomiting, unspecified; R19.5 Other fecal abnormalities; E03.9 Hypothyroidism, unspecified; I10 Essential (primary) hypertension; Z86.711 Personal history of pulmonary embolism; Z85.118 Personal history of other malignant neoplasm of bronchus and lung; Z87.891 Personal history of nicotine dependence; Z79.01 Long term (current) use of anticoagulants; Z20.822 Contact with and (suspected) exposure to COVID-19
CPT/HCPCS: 36415; 71260; 74177; 80053; 82962; 83540; 83550; 83605; 83735; 84439; 84443; 85025; 85045; 85610; 85730; 86850; 86900; 86901; 87635; 93005; 93010; 96361; 96374; 96375; 96376; 99284; C9803; G0378; C9113; J2765; Q9967

== ENCOUNTER → 2021-04-28 12:04 | Outpatient (CLI) | payer OTHER, MEDICAID, SELFPAY ==
[2021-04-28 19:11] LABS: Add Manual Diff / Slide Review NO; Basophils Absolute Auto 100 /uL (0-100); Basophils Percent Auto 1.3 % (0-2); Eosinophils Absolute Auto 100 /uL (0-450); Eosinophils Percent Auto 1.5 % (2-4); Hematocrit 40.3 % (36-46); Hemoglobin 13.4 g/dL (12.0-16.0); Lymphocytes Absolute Auto 1400 /uL (1100-4500); Lymphocytes Percent Auto 19.3 % (25-40); Mean Corpuscular HGB Conc 33.4 % (30-36); Mean Corpuscular Hemoglobin 30.8 PG (26-34); Mean Corpuscular Volume 92.3 fL (80-100); Monocytes Absolute Auto 400 /uL (0-900); Monocytes Percent Auto 5.9 % (3-14); Neutrophils Absolute Auto 5200 /uL (1500-7000); Platelet Count 230 X10^3/uL (150-400); Red Blood Cell Count 4.36 X10^6/uL (4.0-5.2); Red Cell Distribution Width 14.9 % (11.6-14.8); White Blood Cell Count 7.2 X10^3/uL (4.5-11.0)
[2021-04-28 19:21] LABS: Alanine Aminotransferase 14 IU/L (<35); Albumin Globulin Ratio 1.6 (1.0-2.8); Alkaline Phosphatase 82 U/L (38-126); Aspartate Aminotransferase 22 IU/L (14-36); BUN Creatinine Ratio 14.1 (6-22); Bilirubin Total 0.4 mg/dL (0.2-1.3); Blood Urea Nitrogen 20 mg/dL (7-17); Calcium 9.6 mg/dL (8.4-10.2); Carbon Dioxide 30 mmol/L (22-32); Chloride 103 mmol/L (98-107); Estimated Glomerular Filt Rate 38.1 mL/min (>60); Globulin 2.5 g/dL (1.7-4.1); Glucose 102 mg/dL (70-100); HEMOLYSIS < 15 (0-50); Potassium 4.2 mmol/L (3.4-5.1); Sodium 141 mmol/L (137-145); Total Protein 6.5 g/dL (6.3-8.2)
[2021-04-28 19:52] LABS: TSH w/ Reflex to FT4 2.35 uIU/mL (0.47-4.68)
== END ==
PROVIDERS: Family Provider Internal Medicine Critical Care Medicine; PCP Family Medicine; Visit Provider Family Medicine
DX: D62 Acute posthemorrhagic anemia (principal); K27.9 Peptic ulcer, site unspecified, unspecified as acute or chronic, without hemorrhage or perforation; E03.9 Hypothyroidism, unspecified
CPT/HCPCS: 80053; 84443; 85025

== ENCOUNTER → 2021-05-25 15:42 | Outpatient (CLI) | payer OTHER, MEDICAID, SELFPAY ==
[2021-05-26 20:05] LABS: Appearance Urine UA SL CLOUDY; Bilirubin Urine UA NEGATIVE (NEGATIVE); Color Urine UA YELLOW; Glucose Urine UA NEGATIVE (Negative); Ketones Urine UA TRACE (NEGATIVE); Leukocyte Esterase Urine UA 2+ (NEGATIVE); Nitrite Urine UA NEGATIVE (Negative); Occult Blood Urine UA TRACE-LYSED (Negative); Protein Urine UA 1+ (Negative); Specific Gravity Urine UA >=1.030 (1.000-1.035); Urobilinogen Urine UA 0.2 E.U./dL (0.2)
[2021-05-26 20:07] LABS: pH Urine UA 5.5 (4.5-8.0)
[2021-05-26 20:12] LABS: Bacteria Urine Moderate (10-30); Calcium Oxalate Crystals Urine Many; Mucus Urine 1+ (Negative); RBC Urine 0-1/HPF (0-5/HPF); Squamous Epithelial Cell Urine 1-5 /HPF (0-5/HPF); Transitional Epi Cells Urine 1-5/HPF (0-5/HPF); WBC Urine 30-100/HPF (0-5/HPF)
== END ==
PROVIDERS: Family Provider Internal Medicine Critical Care Medicine; PCP Family Medicine; Visit Provider Family Medicine
DX: R82.90 Unspecified abnormal findings in urine (principal)
CPT/HCPCS: 81001; 81002; 87086

== ENCOUNTER 2021-07-07 13:59 | Emergency (ER) | payer OTHER, MEDICAID, SELFPAY ==
[2021-07-07] VITALS (12 sets, daily range): BP systolic 103–144; BP diastolic 65–88; PULSE 71–95; RESP 10–24; TEMP 36.1; O2SAT 92–100
--- NOTE | 2021-07-07 15:05 | ED.SOB ---
HPI - SOB/Dyspnea General Chief Complaint: Shortness of Breath/Dyspnea Stated Complaint: abnormal bleeding/hx of cancer/syncopy/vomitting Time Seen by Provider: 07/07/21 15:05 Source: patient Mode of arrival: Wheelchair Limitations: no limitations History of Present Illness HPI Narrative: This is a 55-year-old female who comes to the emergency department with complaint of what she believes vaginal bleeding that started Monday she states it stopped Monday and and then started again this Monday. She appreciates some clots. She appreciates that when she urinates and wipes but she has not described being on her pad which she wears for occasional urinary incontinence. She has had some mild lightheadedness. No new chest pain. She has occasional shortness of breath which is chronic. She is able to walk to the hospital from a hotel and back but felt somewhat fatigued which she describes as chronic. Patient patient states she has history of lung cancer which was non-small cell as well as small cell carcinoma. She finished chemotherapy about a year ago. She also had 2 weeks extra treatment for potential head involvement although there were no changes ever noted on imaging. She has had chronic abdominal issues and nausea since then. Patient states she does not normally have vomiting. She has never had resolution of her nausea. She has had diarrhea but none recently. No constipation recently. She does have her uterus as well as cervix and ovaries. She noted some changes to her urine with cloudy coloration, and a smell. She was put on some oral antibiotics which she completed had her urine rechecked and still had changes. Patient is on Eliquis after having a PE after her treatment. Hypertensive medications and antidepressant. Her oncologist is in [place]. And her only allergies to medication which she was treated with for ringworm. Related Data Home Medications Medication Instructions Recorded Confirmed amlodipine 5 mg tablet 5 mg PO DAILY 02/15/21 07/05/21 bupropion HCl 200 mg tablet,12 hr 200 mg PO BID 02/16/21 07/05/21 sustained-release Previous Rx's Medication Instructions Recorded docusate sodium 100 mg capsule 100 mg PO BID PRN #30 cap 03/12/21 amiodarone 200 mg tablet See Rx Instructions .ROUTE 04/08/21 .COMPLEX #30 tab apixaban 5 mg tablet (Eliquis) See Rx Instructions .ROUTE 04/08/21 .COMPLEX #60 tab metoprolol succinate 50 mg 50 mg PO DAILY #90 tab 05/05/21 tablet,extended release 24 hr levothyroxine 125 mcg tablet 125 mcg PO DAILY #90 tab 05/13/21 (Synthroid) ondansetron HCl 8 mg tablet 8 mg PO DAILY PRN #30 tab 05/25/21 cephalexin 500 mg capsule 500 mg PO BID 7 Days #14 cap 07/07/21 Allergies Allergy/AdvReac Type Severity Reaction Status Date / Time No Known Drug Allergies Allergy Verified 05/25/21 15:07 Review of Systems Review of Systems ROS Unobtainable: All systems reviewed & are unremarkable except as noted in HPI and below Patient History Medical History Aneurysm Anxiety and depression (~2011) Atrial fibrillation Chronic back pain (~1998) Diverticular disease Hemorrhoid Herpes History of pulmonary embolus (PE) History of urinary incontinence Hypertension, essential Hypothyroidism Kidney disease (~2010) Lung cancer (~2018) Sleep apnea (~2011) Thyroid cancer (~2016) Surgical History Anesthesia Diverticulitis History of hernia surgery (~2003) History of lung surgery (~2011) History of third molar tooth extraction History of thyroidectomy Family History (Updated 04/27/21 @ 14:33 by Margie Jarquin) Father Heart disease Heart attack Skin cancer Hypertension Brother Heart attack History of coronary artery stent placement Heart disease Hypertension Brother Heart disease Heart attack Hypertension Mental health problem Mother Heart disease Hypertension Grandfather Heart disease Grandmother Heart disease Grandfather Throat cancer Grandmother Cancer Social History household members: none Smoking Status: Former smoker alcohol intake: never Smoking Status: Former smoker Substance Use Type: marijuana Exam Narrative Exam Narrative: GENERAL: Alert and oriented x three, mild distress. HEENT: Head normocephalic, atraumatic, EOMI, pupils reactive, face symmetric, moist mucous membranes NECK: Supple, full range of motion CARDIOVASCULAR: Regular rate and rhythm without murmurs, rubs or gallops. RESPIRATORY: Breath sounds equal bilaterally, no wheezes rales or rhonchi. ABDOMEN: Soft, mild tenderness with palpation. Patient has of the abdomen but no easily palpable hernia. Normoactive bowel sounds all 4 quadrants. No guarding or rebound, rigidity, no mass. : No CVA tenderness EXTREMITIES: Normal range of motion, no clubbing or edema. Neurovascularly intact NEUROLOGICAL: Cranial nerves II through XII grossly intact. Moving all extremities SKIN: Warm, dry, no petechiae, no rashes or lesions. Initial Vital Signs Initial Vital Signs: Vital Signs Temperature 96.9 F L 07/07/21 14:05 Pulse Rate 95 H 07/07/21 14:05 Respiratory Rate 24 07/07/21 14:05 Blood Pressure 144/88 H 07/07/21 14:05 Pulse Oximetry 99 07/07/21 14:05 Course Orders Ordered: ED Orders 07/07/21 16:00 XR chest 2V Stat Measure peak expiratory flow ONCE RT Consult Eval and Treat Now 07/07/21 16:04 CT abdomen pelvis wo con Stat 07/07/21 16:12 Urinalysis and Microscopic Stat Urine Culture Stat 07/07/21 16:15 Complete Blood Count AUTO DIFF Stat Comprehensive Metabolic Panel Stat Lactate (Lactic Acid) Stat Lipase Stat Discontinued Medications Cephalexin HCl (Cephalexin 250 Mg Capsule) 500 mg PO NOW ONE Stop: 07/07/21 17:44 Last Admin: 07/07/21 17:56 Dose: 500 mg Documented by: NAKUL Sodium Chloride (Normal Saline 0.9%) 1,000 mls @ 1,000 mls/hr IV BOLUS ONE Stop: 07/07/21 17:03 Last Infusion: 07/07/21 17:47 Dose: 0 mls/hr Documented by: Admin: 07/07/21 16:27 Dose: 1,000 mls/hr Documented by: NAKUL Ondansetron HCl (Ondansetron 4 Mg/2 Ml Inj) 4 mg IV NOW ONE Stop: 07/07/21 16:05 Last Admin: 07/07/21 16:27 Dose: 4 mg Documented by: NAKUL Vital Signs Vital signs: Vital Signs - 8 hr 07/07/21 14:05 07/07/21 14:13 07/07/21 14:15 Temperature 96.9 F L Pulse Rate 95 H 85 90 Respiratory Rate 24 Blood Pressure 144/88 H 134/84 Pulse Oximetry 99 98 99 07/07/21 14:30 07/07/21 15:00 07/07/21 15:23 Temperature Pulse Rate 80 72 80 Respiratory Rate Blood Pressure 131/80 103/65 103/65 Pulse Oximetry 100 94 07/07/21 15:30 07/07/21 16:09 07/07/21 16:10 Temperature Pulse Rate 71 85 85 Respiratory Rate 10 L 14 Blood Pressure 120/80 Pulse Oximetry 92 07/07/21 16:30 07/07/21 17:00 07/07/21 17:30 Temperature Pulse Rate 76 72 73 Respiratory Rate 16 10 L 16 Blood Pressure 124/73 Pulse Oximetry 99 95 96 MDM - SOB/Dyspnea Lab Data Result diagrams: 07/07/21 16:15 07/07/21 16:15 Labs: Lab Results 07/07/21 07/07/21 07/07/21 Range/Units 16:12 16:15 16:15 WBC 15.2 H (4.5-11.0) X10^3/uL RBC 4.67 (4.0-5.2) X10^6/uL Hgb 14.3 (12.0-16.0) g/dL Hct 42.8 (36-46) % MCV 91.7 (80-100) fL MCH 30.6 (26-34) PG MCHC 33.4 (30-36) % RDW 14.8 (11.6-14.8) % Plt Count 269 (150-400) X10^3/uL Neut % (Auto) 88.6 H (50-75) % Lymph % (Auto) 6.2 L (25-40) % [place] % (Auto) 4.1 (3-14) % Eos % (Auto) 0.3 L (2-4) % Baso % (Auto) 0.8 (0-2) % Neut # (Auto) 15445 H (5135-8486) /uL Lymph # (Auto) 900 L (4602-9532) /uL Valencia # (Auto) 600 (0-900) /uL Eos # (Auto) 100 (0-450) /uL Baso # (Auto) 100 (0-100) /uL Sodium 138 (137-145) mmol/L Potassium 3.8 (3.4-5.1) mmol/L Chloride 101 (98-107) mmol/L Carbon Dioxide 25 (22-32) mmol/L BUN 27 H (7-17) mg/dL Creatinine 1.99 H (0.52-1.04) mg/dL Estimated GFR 25.8 L (>60) mL/min BUN/Creatinine Ratio 13.6 (6-22) Glucose 100 (70-100) mg/dL Lactate (0.7-2.1) mmol/L Calcium 9.8 (8.4-10.2) mg/dL Total Bilirubin 0.6 (0.2-1.3) mg/dL AST 27 (14-36) IU/L ALT 19 (<35) IU/L Alkaline Phosphatase 91 (38-126) U/L Total Protein 7.8 (6.3-8.2) g/dL Albumin 4.7 (3.5-5.0) g/dL Globulin 3.1 (1.7-4.1) g/dL Albumin/Globulin Ratio 1.5 (1.0-2.8) Lipase 131 (23-300) U/L Urine Color Yellow Urine Appearance Sl cloudy Urine pH 6.5 (4.5-8.0) Ur Specific [place] <=1.005 (1.000-1.035) Urine Protein 1+ H (Negative) Urine Glucose (UA) Negative (Negative) g/dL Urine Ketones 1+ H (NEGATIVE) Urine Occult Blood 3+ H (Negative) Urine Nitrate Negative (Negative) Urine Bilirubin Negative (NEGATIVE) Urine Urobilinogen 0.2 (0.2) E.U./dL Ur Leukocyte Esterase 3+ H (NEGATIVE) Urine RBC 5-10/hpf H (0-5/HPF) Urine WBC 5-10/hpf H (0-5/HPF) Urine Bacteria Many (>30) H (None) Ur Culture Indicated? Specimen cultured 07/07/21 Range/Units 16:15 WBC (4.5-11.0) X10^3/uL RBC (4.0-5.2) X10^6/uL Hgb (12.0-16.0) g/dL Hct (36-46) % MCV (80-100) fL MCH (26-34) PG MCHC (30-36) % RDW (11.6-14.8) % Plt Count (150-400) X10^3/uL Neut % (Auto) (50-75) % Lymph % (Auto) (25-40) % Valencia % (Auto) (3-14) % Eos % (Auto) (2-4) % Baso % (Auto) (0-2) % Neut # (Auto) (2444-0487) /uL Lymph # (Auto) (0483-6627) /uL Valencia # (Auto) (0-900) /uL Eos # (Auto) (0-450) /uL Baso # (Auto) (0-100) /uL Sodium (137-145) mmol/L Potassium (3.4-5.1) mmol/L Chloride (98-107) mmol/L Carbon Dioxide (22-32) mmol/L BUN (7-17) mg/dL Creatinine (0.52-1.04) mg/dL Estimated GFR (>60) mL/min BUN/Creatinine Ratio (6-22) Glucose (70-100) mg/dL Lactate 2.6 H (0.7-2.1) mmol/L Calcium (8.4-10.2) mg/dL Total Bilirubin (0.2-1.3) mg/dL AST (14-36) IU/L ALT (<35) IU/L Alkaline Phosphatase (38-126) U/L Total Protein (6.3-8.2) g/dL Albumin (3.5-5.0) g/dL Globulin (1.7-4.1) g/dL Albumin/Globulin Ratio (1.0-2.8) Lipase (23-300) U/L Urine Color Urine Appearance Urine pH (4.5-8.0) Ur Specific [place] (1.000-1.035) Urine Protein (Negative) Urine Glucose (UA) (Negative) g/dL Urine Ketones (NEGATIVE) Urine Occult Blood (Negative) Urine Nitrate (Negative) Urine Bilirubin (NEGATIVE) Urine Urobilinogen (0.2) E.U./dL Ur Leukocyte Esterase (NEGATIVE) Urine RBC (0-5/HPF) Urine WBC (0-5/HPF) Urine Bacteria (None) Ur Culture Indicated? Imaging Data CT scan - abdomen/pelvis: Radiologist's Impression: EstherGale Ibeth 55 F [address] [id number] Scan ReportSigned Patient: Gale Santana FMR#: [id number]: 1965Acct:[id number]/Sex: 55 / FDate of Service: 07/07/21Loc: EDAccession Number: [id number] Procedure: CT abdomen pelvis wo con Ordering Provider: Jany Wyatt D.O. PROCEDURE: CT ABDOMEN PELVIS WO CON INDICATIONS: hematuria v vag bleeding, hx lung ca, chronic abd pain + saba TECHNIQUE: Noncontrast 5 mm thick sections acquired from the diaphragms to the symphysis. 5 mm coronal and sagittal reformats were then performed. For radiation dose reduction, the following was used: automated exposure control, adjustment of mA and/or kV according to patient size. COMPARISON: [facility], CT, CT CHEST ABD PEL W CON, 02/27/2021, 0:09. FINDINGS: Image quality: Excellent. ABDOMEN: Lung bases: Lung bases are clear. Heart size is normal. Solid organs: Liver is normal in size. Gallbladder contains probable sludge. . Pancreas is normal in contours. Spleen is normal in size. No adrenal nodules. Kidneys are normal in size, without hydronephrosis or nephrolithiasis. Peritoneum and bowel: Unenhanced bowel loops demonstrate normal wall thickness and caliber. No free fluid or air. Moderately large fecal load. Nodes and vessels: No retroperitoneal or mesenteric adenopathy by size criteria. Aorta is mildly ectatic without luke aneurysm. Normal caliber inferior vena cava. Miscellaneous: No ventral hernias. Remote measure repair of the ventral abdominal wall. PELVIS: Genitourinary: Bladder wall thickness is normal. Miscellaneous: No inguinal hernias or adenopathy. Unchanged benign appearing unchanged 2 cm maximum diameter left lower pelvic calcification immediately posterior to the pubic symphysis . Bones: No suspicious bony lesions. No vertebral body compression fractures. IMPRESSION: 1. No evidence acute abdominal process. 2. Atherosclerosis. 3. Moderately large fecal load. Dictated by: Garry Casillas M.D. on 07/07/2021 at 16:52 Approved by: Garry Casillas M.D. on 07/07/2021 at 16:57 Chest x-ray: Radiologist's Impression: [address] [id number] ReportSigned Patient: Gale Santana FMR#: [id number]: 1965Acct:[id number]/Sex: 55 / FDate of Service: 07/07/21Loc: EDAccession Number: [id number] Procedure: XR chest 2V Ordering Provider: Jany Wyatt D.O. PROCEDURE: XR CHEST 2V INDICATIONS: shortness of breath TECHNIQUE: 2 views of the chest were acquired. COMPARISON: [facility], CT, CT CHEST ABD PEL W CON, 02/27/2021, 0:09. FINDINGS: Surgical changes and devices: None. Lungs and pleura: Poorly defined opacity can be seen involving the left medial lung apex. No pleural effusions or pneumothorax. Mediastinum: Mediastinal contours are normal. Heart size is normal. Bones and chest wall: No suspicious bony abnormalities. Age-appropriate bony degenerative changes are seen. Accentuated thoracic kyphosis is seen. Soft tissues appear unremarkable. IMPRESSION: Poorly defined opacity is seen involving the left medial lung apex, which is similar to the CT dated 02/27/2021. This is felt most likely be related to posttreatment changes. No definite, acute abnormality is identified. Dictated by: Nathanael Rios M.D. on 07/07/2021 at 16:02 Approved by: Nathanael Rios M.D. on 07/07/2021 at 16:03 ECG Data Attestation: I personally reviewed and interpreted this ECG as follows: Interpretation: Sinus rhythm incomplete right bundle branch. Rate of 80, ND 156 QRS of 112 and QTC of 498. No acute ST changes appreciated patient has prior from 02/27/2021 which appears similar. MDM Narrative Medical decision making narrative: This is a 55-year-old female comes with complaint of abnormal bleeding which she relates as vaginal but states only when she sits down at the toilet when she wipes or in the toilet water. She has not appreciated active bleeding on her underwear when out and about during the day. She did have a Pap smear on Monday with a vaginal exam which did not show any active bleeding at that time. She deferred a secondary exam today. Discussed with patient her bleeding may be hematuria. She does have a white count, she has bacteria, leuks and blood and I would treat her as UTI at this time. She is unsure what antibiotic she was on before. She is on anticoagulation secondary to prior pulmonary emboli. Her CT does not show any clear acute findings today. She does have a bump in her creatinine in comparison to April. Patients vitals have improved during her stay. Discharge Plan Departure Patient Disposition: Home Clinical Impression: UTI (urinary tract infection), Hematuria Activity Restrictions/Additional Instructions: Patient discharge instructions were accidentally erased after patient was discharged. Prescriptions: New cephalexin 500 mg capsule 500 mg PO BID 7 Days Qty: 14 RF: 0 No Action amiodarone 200 mg tablet See Rx Instructions .ROUTE .COMPLEX Qty: 30 RF: 2 apixaban [Eliquis] 5 mg tablet See Rx Instructions .ROUTE .COMPLEX Qty: 60 RF: 2 metoprolol succinate 50 mg tablet extended release 24 hr 50 mg PO DAILY Qty: 90 RF: 1 levothyroxine [Synthroid] 125 mcg tablet 125 mcg PO DAILY Qty: 90 RF: 1 docusate sodium 100 mg capsule 100 mg PO BID PRN (Reason: constipation) Qty: 30 RF: 1 ondansetron HCl 8 mg tablet 8 mg PO DAILY PRN (Reason: nausea and vomiting) Qty: 30 RF: 2 bupropion HCl 200 mg tablet sustained-release 12 hr 200 mg PO BID RF: 0 amlodipine 5 mg tablet 5 mg PO DAILY RF: 0 Referrals: Lei Turpin MD [Primary Care Provider] -
--- NOTE | 2021-07-07 16:00 | DI.RAD.S_ITS ---
PROCEDURE: XR CHEST 2V INDICATIONS: shortness of breath TECHNIQUE: 2 views of the chest were acquired. COMPARISON: [facility], CT, CT CHEST ABD PEL W CON, 02/27/2021, 0:09. FINDINGS: Surgical changes and devices: None. Lungs and pleura: Poorly defined opacity can be seen involving the left medial lung apex. No pleural effusions or pneumothorax. Mediastinum: Mediastinal contours are normal. Heart size is normal. Bones and chest wall: No suspicious bony abnormalities. Age-appropriate bony degenerative changes are seen. Accentuated thoracic kyphosis is seen. Soft tissues appear unremarkable. IMPRESSION: Poorly defined opacity is seen involving the left medial lung apex, which is similar to the CT dated 02/27/2021. This is felt most likely be related to posttreatment changes. No definite, acute abnormality is identified. Dictated by: Nathanael Rios M.D. on 07/07/2021 at 16:02 Approved by: Nathanael Rios M.D. on 07/07/2021 at 16:03
--- NOTE | 2021-07-07 16:04 | DI.CT.S_ITS ---
PROCEDURE: CT ABDOMEN PELVIS WO CON INDICATIONS: hematuria v vag bleeding, hx lung ca, chronic abd pain + saba TECHNIQUE: Noncontrast 5 mm thick sections acquired from the diaphragms to the symphysis. 5 mm coronal and sagittal reformats were then performed. For radiation dose reduction, the following was used: automated exposure control, adjustment of mA and/or kV according to patient size. COMPARISON: [facility], CT, CT CHEST ABD PEL W CON, 02/27/2021, 0:09. FINDINGS: Image quality: Excellent. ABDOMEN: Lung bases: Lung bases are clear. Heart size is normal. Solid organs: Liver is normal in size. Gallbladder contains probable sludge. . Pancreas is normal in contours. Spleen is normal in size. No adrenal nodules. Kidneys are normal in size, without hydronephrosis or nephrolithiasis. Peritoneum and bowel: Unenhanced bowel loops demonstrate normal wall thickness and caliber. No free fluid or air. Moderately large fecal load. Nodes and vessels: No retroperitoneal or mesenteric adenopathy by size criteria. Aorta is mildly ectatic without luke aneurysm. Normal caliber inferior vena cava. Miscellaneous: No ventral hernias. Remote measure repair of the ventral abdominal wall. PELVIS: Genitourinary: Bladder wall thickness is normal. Miscellaneous: No inguinal hernias or adenopathy. Unchanged benign appearing unchanged 2 cm maximum diameter left lower pelvic calcification immediately posterior to the pubic symphysis . Bones: No suspicious bony lesions. No vertebral body compression fractures. IMPRESSION: 1. No evidence acute abdominal process. 2. Atherosclerosis. 3. Moderately large fecal load. Dictated by: Garry Casillas M.D. on 07/07/2021 at 16:52 Approved by: Garry Casillas M.D. on 07/07/2021 at 16:57
[2021-07-07 16:15] LABS: Appearance Urine UA SL CLOUDY; Bilirubin Urine UA NEGATIVE (NEGATIVE); Color Urine UA YELLOW; Glucose Urine UA NEGATIVE (Negative); Ketones Urine UA 1+ (NEGATIVE); Leukocyte Esterase Urine UA 3+ (NEGATIVE); Nitrite Urine UA NEGATIVE (Negative); Occult Blood Urine UA 3+ (Negative); Protein Urine UA 1+ (Negative); Specific Gravity Urine UA <=1.005 (1.000-1.035); Urobilinogen Urine UA 0.2 E.U./dL (0.2)
[2021-07-07 16:20] LABS: Add Manual Diff / Slide Review NO; Basophils Absolute Auto 100 /uL (0-100); Basophils Percent Auto 0.8 % (0-2); Eosinophils Absolute Auto 100 /uL (0-450); Eosinophils Percent Auto 0.3 % (2-4); Hematocrit 42.8 % (36-46); Hemoglobin 14.3 g/dL (12.0-16.0); Lymphocytes Absolute Auto 900 /uL (1100-4500); Lymphocytes Percent Auto 6.2 % (25-40); Mean Corpuscular HGB Conc 33.4 % (30-36); Mean Corpuscular Hemoglobin 30.6 PG (26-34); Mean Corpuscular Volume 91.7 fL (80-100); Monocytes Absolute Auto 600 /uL (0-900); Monocytes Percent Auto 4.1 % (3-14); Neutrophils Absolute Auto 13500 /uL (1500-7000); Neutrophils Percent Auto 88.6 % (50-75); Platelet Count 269 X10^3/uL (150-400); Red Blood Cell Count 4.67 X10^6/uL (4.0-5.2); Red Cell Distribution Width 14.8 % (11.6-14.8); White Blood Cell Count 15.2 X10^3/uL (4.5-11.0)
[2021-07-07 16:22] LABS: pH Urine UA 6.5 (4.5-8.0)
[2021-07-07 16:24] LABS: RBC Urine 5-10/HPF (0-5/HPF); WBC Urine 5-10/HPF (0-5/HPF)
[2021-07-07 16:25] LABS: Bacteria Urine Many (>30); Culture Indicated Urine Specimen Cultured
[2021-07-07] MEDS: SODIUM CHLORIDE 0.9% 1,000 ML 1000 ML IV (16:27)
[2021-07-07] MEDS: ONDANSETRON 4 MG/2 ML INJ IV (16:27)
[2021-07-07 16:34] LABS: Lactate (Lactic Acid) 2.6 mmol/L (0.7-2.1)
[2021-07-07 16:35] LABS: Alanine Aminotransferase 19 IU/L (<35); Albumin 4.7 g/dL (3.5-5.0); Albumin Globulin Ratio 1.5 (1.0-2.8); Alkaline Phosphatase 91 U/L (38-126); Aspartate Aminotransferase 27 IU/L (14-36); BUN Creatinine Ratio 13.6 (6-22); Bilirubin Total 0.6 mg/dL (0.2-1.3); Blood Urea Nitrogen 27 mg/dL (7-17); Calcium 9.8 mg/dL (8.4-10.2); Carbon Dioxide 25 mmol/L (22-32); Chloride 101 mmol/L (98-107); Estimated Glomerular Filt Rate 25.8 mL/min (>60); Globulin 3.1 g/dL (1.7-4.1); Glucose 100 mg/dL (70-100); HEMOLYSIS 17 (0-50); Lipase 131 U/L (23-300); Potassium 3.8 mmol/L (3.4-5.1); Sodium 138 mmol/L (137-145); Total Protein 7.8 g/dL (6.3-8.2)
[2021-07-07] MEDS: cephALEXin 250 MG CAPSULE 500 MG PO (17:56)
[2021-07-07 18:16] LABS: Reflexed Lactate in 2 Hours Y
== END 2021-07-07 18:16 | disposition home or self-care (01) ==
PROVIDERS: Emergency Provider Emergency Medicine; Family Provider Internal Medicine Critical Care Medicine; PCP Family Medicine
DX: N39.0 Urinary tract infection, site not specified (principal); R31.9 Hematuria, unspecified; R42 Dizziness and giddiness; R06.02 Shortness of breath
CPT/HCPCS: 36415; 71046; 74176; 80053; 81001; 83605; 83690; 85025; 87077; 87086; 87186; 93005; 96361; 96374; 99284; J2405

== ENCOUNTER → 2021-11-24 10:59 | Outpatient (CLI) | payer OTHER, MEDICAID, SELFPAY ==
[2021-11-24 19:00] LABS: Hematocrit 40.6 % (36-46); Hemoglobin 13.9 g/dL (12.0-16.0); Mean Corpuscular HGB Conc 34.2 % (30-36); Mean Corpuscular Volume 90.9 fL (80-100); Platelet Count 223 X10^3/uL (150-400); Red Blood Cell Count 4.47 X10^6/uL (4.0-5.2); Red Cell Distribution Width 14.6 % (11.6-14.8); White Blood Cell Count 6.3 X10^3/uL (4.5-11.0)
[2021-11-24 19:05] LABS: Alanine Aminotransferase 11 IU/L (<35); Albumin 4.1 g/dL (3.5-5.0); Albumin Globulin Ratio 1.5 (1.0-2.8); Alkaline Phosphatase 71 U/L (38-126); Aspartate Aminotransferase 23 IU/L (14-36); BUN Creatinine Ratio 15.3 (6-22); Bilirubin Total 0.6 mg/dL (0.2-1.3); Blood Urea Nitrogen 21 mg/dL (7-17); Calcium 9.5 mg/dL (8.4-10.2); Carbon Dioxide 30 mmol/L (22-32); Chloride 104 mmol/L (98-107); Cholesterol 292 mg/dL (140-199); Estimated Glomerular Filt Rate 39.7 mL/min (>60); Globulin 2.8 g/dL (1.7-4.1); Glucose 92 mg/dL (70-100); HDL Cholesterol 44 mg/dL (40-60); HEMOLYSIS 30 (0-50); LDL Cholesterol Calculated 213 mg/dL (<100); Sodium 140 mmol/L (137-145); Total Protein 6.9 g/dL (6.3-8.2); Triglycerides 177 mg/dL (35-150)
[2021-11-24 19:09] LABS: HEMOLYSIS 17 (0-50); Iron 61 ug/dL (37-170)
[2021-11-24 19:17] LABS: Vitamin D 25 Hydroxy (D3) 19.5 ng/mL (30.0-100.0)
[2021-11-24 19:22] LABS: Percent Iron Saturation 21 % (15-50); Total Iron Binding Capacity 288 ug/dL (265-497); Transferrin 242 mg/dL (206-381)
[2021-11-24 19:31] LABS: TSH w/ Reflex to FT4 1.88 uIU/mL (0.47-4.68)
[2021-11-24 19:35] LABS: Ferritin 160 ng/mL (11-264)
[2021-11-24 19:48] LABS: Neutrophils Absolute Manual 4347 /uL (3000-5900); Total Cells Counted 100
[2021-11-24 19:50] LABS: RBC Morphology Normal Morphology
== END ==
PROVIDERS: Family Provider Internal Medicine Critical Care Medicine; PCP Family Medicine; Visit Provider Family Medicine
DX: D69.6 Thrombocytopenia, unspecified (principal); I10 Essential (primary) hypertension; Z87.891 Personal history of nicotine dependence; E03.9 Hypothyroidism, unspecified; Z82.49 Family history of ischemic heart disease and other diseases of the circulatory system; N18.4 Chronic kidney disease, stage 4 (severe); N18.9 Chronic kidney disease, unspecified; R10.9 Unspecified abdominal pain; R31.9 Hematuria, unspecified; R53.83 Other fatigue; Z79.01 Long term (current) use of anticoagulants
CPT/HCPCS: 80053; 80061; 82306; 82728; 83540; 83550; 84443; 85025

== ENCOUNTER → 2022-01-17 12:09 | Outpatient (CLI) | payer OTHER, MEDICAID, SELFPAY ==
[2022-01-17 19:18] LABS: Hematocrit 39.1 % (36-46); Hemoglobin 13.1 g/dL (12.0-16.0)
[2022-01-17 19:40] LABS: BUN Creatinine Ratio 15.2 (6-22); Blood Urea Nitrogen 21 mg/dL (7-17); Calcium 9.3 mg/dL (8.4-10.2); Carbon Dioxide 32 mmol/L (22-32); Chloride 104 mmol/L (98-107); Estimated Glomerular Filt Rate 39.3 mL/min (>60); Glucose 100 mg/dL (70-100); HEMOLYSIS < 15 (0-50); Potassium 4.3 mmol/L (3.4-5.1); Sodium 141 mmol/L (137-145)
[2022-01-17 19:48] LABS: Protein (Total) Urine Random 11 mg/dL (0-12)
[2022-01-17 20:20] LABS: Appearance Urine UA SL CLOUDY; Bilirubin Urine UA NEGATIVE (NEGATIVE); Color Urine UA YELLOW; Glucose Urine UA NEGATIVE (Negative); Ketones Urine UA NEGATIVE (NEGATIVE); Leukocyte Esterase Urine UA TRACE (NEGATIVE); Nitrite Urine UA NEGATIVE (Negative); Occult Blood Urine UA 1+ (Negative); Protein Urine UA TRACE (Negative); Urobilinogen Urine UA 0.2 E.U./dL (0.2)
[2022-01-17 20:41] LABS: RBC Urine 1-5/HPF (0-5/HPF); pH Urine UA 7.5 (4.5-8.0)
[2022-01-17 20:42] LABS: Amorphous Sediment Urine 1+; Bacteria Urine Occasional (0-1); Culture Indicated Urine Specimen Cultured; Squamous Epithelial Cell Urine 1-5 /HPF (0-5/HPF); WBC Urine 1-5/HPF (0-5/HPF)
[2022-01-19 05:46] LABS: Parathyroid Hormone Int 55 pg/mL (15-65)
== END ==
PROVIDERS: Family Provider Internal Medicine Critical Care Medicine; PCP Family Medicine; Visit Provider Student in an Organized Health Care Education/Training Program
DX: D64.9 Anemia, unspecified (principal); N05.9 Unspecified nephritic syndrome with unspecified morphologic changes; N25.81 Secondary hyperparathyroidism of renal origin; N30.00 Acute cystitis without hematuria; R80.9 Proteinuria, unspecified
CPT/HCPCS: 80048; 81001; 82570; 83970; 84156; 85014; 85018; 87086